=== PATIENT | male | born 1965 | race Caucasian/White ===

== ENCOUNTER 2021-04-17 09:42 | Emergency (ER) | payer OTHER, SELFPAY ==
--- NOTE | ~2021-04-17 | CT_ITS ---
EXAMINATION: CT LUMBAR SPINE WITHOUT CONTRAST CLINICAL INFORMATION: [id number] back pain. History of multiple effusions. COMPARISON: X-ray of the lumbosacral spine April 2008. CT of the abdomen and pelvis March 2017. TECHNIQUE: CT scan of the lumbosacral spine was performed with reconstruction imaging performed at the acquisition workstation. This CT examination was performed using dose optimization techniques as appropriate, variously including the following: *Automated exposure control *Adjustment of mA and/or kV according to patient size (this includes techniques or standardized protocols for targeted exams where dose is matched to indication/reason for exam; i.e. extremities or head) *Use of iterative reconstruction technique DLP; 1114.76 mGy-cm FINDINGS: Postoperative changes in the lower lumbosacral spine with posterior and anterior instrumentation from L4 through S1. At L4-L5, there are bilateral pedicle screws, parallel longitudinal interconnecting rods and posterior fusion mass noted. At L5-S1, there is also fusion with anterior plate and screw formation with interbody bone graft construct and osseous bridging between the posterior elements of L5 and S1. Posterior screws appear to have been removed but unchanged compared with 2017. Posterior decompression also noted, unchanged. There is persistent fixed anterior translation of L5 and S1 status post aforementioned fusion, unchanged compared to prior. Minimal multilevel degenerative disc changes manifested by small endplate osteophytes without disc space narrowing throughout the lumbar region, unchanged. The remaining facets are unremarkable. There is no fracture or bone lesion. Possible mild generalized central narrowing of the canal at the L4-L5 level, unchanged. Arterial calcification present. CT/CT lumbar spine wo con IMPRESSION: No fracture or acute abnormality. No change compared with CT of the abdomen and pelvis March 2017. Postsurgical changes related to lower lumbosacral spine fusion, unchanged.
--- NOTE | ~2021-04-17 | CT_ITS ---
EXAMINATION: CT CERVICAL SPINE WITHOUT CONTRAST CLINICAL INFORMATION: [id number] back pain. History of multiple fusion. COMPARISON: None TECHNIQUE: CT scan of the cervical spine was performed with reconstruction imaging performed at the acquisition workstation. This CT examination was performed using dose optimization techniques as appropriate, variously including the following: *Automated exposure control *Adjustment of mA and/or kV according to patient size (this includes techniques or standardized protocols for targeted exams where dose is matched to indication/reason for exam; i.e. extremities or head) *Use of iterative reconstruction technique DLP: 496 mGy-cm FINDINGS: Vertebral bodies normally aligned. There is mild multilevel degenerative disc changes manifested by endplate osteophytes noted throughout the cervical spine but without disc space narrowing. The facets appear normal. The surrounding soft tissues are normal. There is no fracture. MISCELLANEOUS: Incidental note made of emphysema in the upper lobes with slightly complex moderate-sized bulla in the right apex. CT/CT cervical spine wo con IMPRESSION: Mild multilevel cervical spondylosis without acute abnormality. Emphysema.
--- NOTE | ~2021-04-17 | CT_ITS ---
EXAMINATION: CT THORACIC SPINE WITHOUT CONTRAST CLINICAL INFORMATION: Back pain COMPARISON: None TECHNIQUE: Axial images through the thoracic spine without contrast. Sagittal and coronal reconstructions on the technologist workstation were performed. Patient dose 111 5 mg/cm. This CT examination was performed using dose optimization techniques as appropriate, variously including the following: *Automated exposure control *Adjustment of mA and/or kV according to patient size (this includes techniques or standardized protocols for targeted exams where dose is matched to indication/reason for exam; i.e. extremities or head) *Use of iterative reconstruction technique DLP: 1115 mGy-cm FINDINGS: There is mild curvature of the midthoracic spine to the right. Bone alignment is otherwise normal. No fracture, dislocation or bone lesion is seen. There is multilevel degenerative spondylosis. No disc herniation is seen. There is evidence of severe emphysema. There are postsurgical changes to the right upper lobe with surgical staple line. There is shotty mediastinal lymphadenopathy. The heart may be enlarged. There is coronary artery calcification. There are multiple old right-sided rib fractures or postsurgical change to the right posterior ribs. CT/CT thoracic spine wo con IMPRESSION: Scoliosis and multilevel degenerative spondylosis. No fracture, bone lesion or disc herniation is seen.
[2021-04-17 10:24] VITALS: BP 159/79; PULSE 87; RESP 18; TEMP 36.6; O2SAT 98; BMI 29.5
[2021-04-17 12:00] VITALS: RESP 18
[2021-04-17] MEDS: Morphine Sulfate 4 MG/ML CARTRIDGE IM (12:00)
--- NOTE | 2021-04-17 12:53 | ED_ITS ---
HPI - Back Pain/Injury General Chief Complaint: Back Pain/Injury Stated Complaint: back pain Time Seen by Provider: 04/17/21 11:16 Source: patient Mode of arrival: ambulatory Limitations: no limitations History of Present Illness HPI Narrative: 55-year-old male with a past medical history of chronic back pain /ruptured lumbar disc with spinal surgery years ago, TIA, hypertension, hyperlipidemia, PVD and depression presenting to the ED with complaints of acute on chronic back pain for the past 3 weeks that has been persistent despite taking his 60 mg of oxycodone daily. He reports he takes 10 mg every 4-6 hours and it is not providing any symptomatic relief. He reports that approximately 3 weeks ago he had a near fall although did not actually fall and since then has been having neck/mid and lower back pain. MD elicited complaint: back pain and back injury Pertinent past history: prior back pain, recent trauma and back surgery Onset (ago): week(s) ( Three weeks) Timing: constant and progressively worsening Severity: severe Pain scale (0-10): 10 Similar Symptoms Previously: Yes Quality: throbbing Location: lumbar spine and thoracic spine ( and cervical) Radiation: none Exacerbating factors: movement Relieving factors: none Context: other ( near fall) Associated symptoms: denies other symptoms Treatments prior to arrival: other ( see above) Work related injury: No Related Data Allergies Allergy/AdvReac Type Severity Reaction Status Date / Time Sulfa (Sulfonamide Allergy Mild RASH Unverified 06/29/20 15:22 Antibiotics) [Sulfa (Sulfonamides)] Review of Systems Review of Systems: Constitutional : No trauma, No Weight loss, No Fever, No Chills, ENT/Mouth : No Hearing loss, No Ear Pain, No Nasal Congestion, No Sinus Pain, No Hoarseness, No sore throat, No Rhinorrhea, No Swallowing Difficulty Cardiovascular : No Chest Pain, No SOB Respiratory : No Cough, No Dyspnea Gastrointestinal : No Nausea, No Vomiting, No Diarrhea, No abdominal Pain, No Hematochezia, No Melena Genitourinary : No Dysuria, No Urinary Frequency, No Hematuria, No Urinary or Bowel Incontinence/retention Musculoskeletal : + Back pain, No neck pain, No joint stiffness, No joint swelling Skin : No Skin Lesions, No rash or signs of infection Neuro : No Weakness, No radiation, No Numbness, No Paresthesias, No headache, no loss of bowel or bladder incontinence, no saddle anesthesia, Focal weakness, No radiation Denies history of IV drug usage. Yes all other systems are reviewed and are negative PMFSH Past Medical History Attestation statement: The following information was validated with the patient. Medical History Back pain with history of spinal surgery HTN (hypertension) Ruptured lumbar disc Social History Social History Advance Directives: No Advance Directives Information Provided: No Physical Exam Vital Signs: Vital Signs: Last Vital Signs Temp 98 F 04/17/21 10:24 Pulse 87 04/17/21 10:24 Resp 18 04/17/21 12:00 BP 159/79 H 04/17/21 10:24 Pulse Ox 98 04/17/21 10:24 Body Mass Index 29.5 vital signs have been reviewed as normal and appeared to be correct. Blood pressure hypertensive at 159/79. Heart rate normal. Respiration rate normal. Temperature normal. Oxygen saturation normal. Appearance: Alert. Oriented X3. No acute distress. Head: Normal external exam. Normocephalic. Atraumatic. Eyes: PERRLA. EOMI. Conjunctiva and sclera normal. Eyelids normal. ENT: Pharynx normal. Uvula midline. Moist mucous membranes. No trismus noted. No drooling noted. No muffled voice noted. Neck: Normal inspection. Neck supple. FROM. No adenopathy. Thyroid Normal. Trachea midline. No meningeal signs. No neck mass noted. Tender to palpation of bilateral paracervical musculature and mid cervical tenderness. No step-offs or deformities noted. Patient neuro intact bilaterally and distally on all 4 extremities. Reflexes intact bilaterally and distally in all 4 extremities. No rashes/lesion/induration/fluctuance or signs of infection noted. No edema noted. CVS: Normal heart rate and rhythm. Heart sound normal. No murmurs noted. Pulses normal throughout. Respiratory: No respiratory distress. Painless inspiration. Breath sounds normal. No wheezes/rales/rhonchi noted. Chest nontender. No accessory muscle usage noted or decreased air movement noted. Back: No CVA tenderness. Full range of motion noted. No obvious deformities, or edema. Mild para-spinal muscular tenderness from lumbar region to coccyx. Full ROM in back and lower extremities. 5/5 strength hip extension/flexion, abduction, adduction. Mild Lumbar pain with hip flexion against resistance. Straight leg raise test negative on right; Straight leg raise test negative on left; Reflexes normal ankle and knee bilaterally; EHL motor strength normal bilaterally. No rashes/lesion/induration/fluctuance or signs infection noted. Skin: Skin warm and dry. Normal skin color. Normal skin turgor. No rashes/lesions/lacerations noted. Extremities: Extremities exhibit normal range of motion. Extremities nontender. Neuro: Oriented X 3. No motor deficit. No sensory deficit. Reflexes normal. Normal steady gait. Course Course Course Narrative: Pt c likely muscular pain, but could be herniated disc. Neuro exam shows no deficits. Not c/w AAA/epidural abscess/dissection.No high risk Hx (Incont, fever, immunosupp, recent surgery/LP, coag, signif trauma, wt loss, puls mass, hx/o Ca, TB, or IVDU) to warrant MRI. although patient is requesting imaging at this time therefore will do a CT scan of cervical/thoracic and lumbar spine. Not c/w Pyelo/UTI/kidney stone/spinal fx. Not cauda equina syndrome. Patient refused rectal exam reports that he has full sensation and is not having any urinary / bowel incontinence or retention. Therefore adamantly refusing rectal exam. If CT scan of cervical/thoracic and lumbar spine negative will DC home with instructions to follow up with primary care provider and to return if any new or worsening symptoms. I explained to the patient that I can not give him another script for narcotics as he is already on 10 mg of oxycodone every 4-6 hours. Therefore I offered him an IM dose of morphine although explained to him that I cannot send him home with morphine and he understood this due to he is already on oxycodone. Will re-evaluate. Reevaluation(s) Reevaluation #1: imaging negative for any acute processes. I printed out the report and gave it to the patient so he can bring to his primary care provider. Will DC home instructions to continue taking his pain meds as prescribed. Patient understands agrees with this plan. Time: 13:39 MDM - Back Pain/Injury Medical Records Attestation: I reviewed the patient's medical records. Imaging Data Thoracic spine CT scan: Attestation: I personally reviewed and interpreted this imaging study as follows: Radiologist's impression: FINDINGS: There is mild curvature of the midthoracic spine to the right. Bone alignment is otherwise normal. No fracture, dislocation or bone lesion is seen. There is multilevel degenerative spondylosis. No disc herniation is seen. There is evidence of severe emphysema. There are postsurgical changes to the right upper lobe with surgical staple line. There is shotty mediastinal lymphadenopathy. The heart may be enlarged. There is coronary artery calcification. There are multiple old right-sided rib fractures or postsurgical change to the right posterior ribs. CT/CT thoracic spine wo con IMPRESSION: Scoliosis and multilevel degenerative spondylosis. No fracture, bone lesion or disc herniation is seen. CT scan of cervical spine without contrast: Attestation: I personally reviewed and interpreted this imaging study as follows: Radiologist's impression: FINDINGS: Vertebral bodies normally aligned. There is mild multilevel degenerative disc changes manifested by endplate osteophytes noted throughout the cervical spine but without disc space narrowing. The facets appear normal. The surrounding soft tissues are normal. There is no fracture. MISCELLANEOUS: Incidental note made of emphysema in the upper lobes with slightly complex moderate-sized bulla in the right apex. CT/CT cervical spine wo con IMPRESSION: Mild multilevel cervical spondylosis without acute abnormality. Emphysema. lumbar spine CT without contrast: Attestation: I personally reviewed and interpreted this imaging study as follows: Radiologist's impression: FINDINGS: Postoperative changes in the lower lumbosacral spine with posterior and anterior instrumentation from L4 through S1. At L4-L5, there are bilateral pedicle screws, parallel longitudinal interconnecting rods and posterior fusion mass noted. At L5-S1, there is also fusion with anterior plate and screw formation with interbody bone graft construct and osseous bridging between the posterior elements of L5 and S1. Posterior screws appear to have been removed but unchanged compared with 2017. Posterior decompression also noted, unchanged. There is persistent fixed anterior translation of L5 and S1 status post aforementioned fusion, unchanged compared to prior. Minimal multilevel degenerative disc changes manifested by small endplate osteophytes without disc space narrowing throughout the lumbar region, unchanged. The remaining facets are unremarkable. There is no fracture or bone lesion. Possible mild generalized central narrowing of the canal at the L4-L5 level, unchanged. Arterial calcification present. CT/CT lumbar spine wo con IMPRESSION: No fracture or acute abnormality. No change compared with CT of the abdomen and pelvis March 2017. Postsurgical changes related to lower lumbosacral spine fusion, unchanged. Discharge Plan Discharge Clinical Impression: Scoliosis, Chronic back pain, Cervical spondylosis Patient Disposition: Home, Self-Care Instructions: Chronic Back Pain (DC), Lower Back Exercises (ED) Referrals: Phillip Levy PA [Primary Care Provider] - 2 days Print Language: Occitan
== END 2021-04-17 14:06 | disposition home or self-care (01) ==
PROVIDERS: Emergency Provider Emergency Medicine; PCP Physician Assistant Medical
DX: M41.9 Scoliosis, unspecified (principal); M47.892 Other spondylosis, cervical region; G89.29 Other chronic pain; M54.5 Low back pain; I10 Essential (primary) hypertension; E78.5 Hyperlipidemia, unspecified; Z86.73 Personal history of transient ischemic attack (TIA), and cerebral infarction without residual deficits
CPT/HCPCS: 72125; 72128; 72131; 96372; 99283; 99284; J2270